=== PATIENT | female | born 2000 | race Caucasian/White ===

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

== ENCOUNTER 2020-07-18 02:52 | Emergency (ER) | payer BC ==
[2020-07-18 03:02] VITALS: TEMP 98.9
[2020-07-18] MEDS ORDERED: IPRATROPIUM-ALBUTEROL 3 ML NEB INHALATION STA (03:16)
--- NOTE | 2020-07-18 03:17 | ED ---
SOB HPI - General Chief Complaint: Shortness of Breath Stated Complaint: ADELA Time Seen by Provider: 07/18/20 02:54 Source: patient, RN notes reviewed, old records reviewed Limitations: no limitations - History of Present Illness Initial Comments: This is a 19-year-old female DF for evaluation patient presents today for evaluation of shortness of breath. No medical history takes no medications denies . Patient is to on her motivate pain. She is anxious on arrival to ER. No recent travel history or sick contacts no prior medical history takes no medications MD Complaint: shortness of breath -: days(s) (3) Severity: mild Severity scale (1-10): 3 Quality: other (No pain) Consistency: intermittent Improves With: nothing Worsens With: exertion Context: recent URI Associated Symptoms: denies other symptoms Treatments Prior to Arrival: none - Related Data Previous Rx's Medication Instructions Recorded Ondansetron Odt [Zofran Odt] 4 mg PO Q8HR PRN #12 tab 11/28/18 Cephalexin [Keflex] 500 mg PO Q12HR 10 Days cap 02/17/19 Cephalexin [Keflex] 500 mg PO Q6HR 3 Days #10 cap 07/10/19 Albuterol Sulfate [Proair Hfa] 1 - 2 puff INHALATION Q4H PRN #1 07/18/20 inhaler Azithromycin [Zithromax Z-pack] 0 mg PO DIRECTED #1 pack 07/18/20 Allergies Allergy/AdvReac Type Severity Reaction Status Date / Time No Known Allergies Allergy Verified 07/18/20 03:02 Review of Systems ROS Statement: Those systems with pertinent positive or pertinent negative responses have been documented in the HPI. ROS Other: All systems not noted in ROS Statement are negative. Past Medical History Past Medical History: No Reported History History of Any Multi-Drug Resistant Organisms: None Reported Additional Past Surgical History / Comment(s): oral surgery Past Psychological History: No Psychological Hx Reported, ADD/ADHD Smoking Status: Current every day smoker Past Alcohol Use History: Occasional Past Drug Use History: None Reported General Exam Limitations: no limitations General appearance: alert, in no apparent distress, anxious Head exam: Present: atraumatic, normocephalic, normal inspection Eye exam: Present: normal appearance, PERRL, EOMI. Absent: scleral icterus, conjunctival injection, periorbital swelling ENT exam: Present: normal exam, mucous membranes moist Neck exam: Present: normal inspection. Absent: tenderness, meningismus, lymphadenopathy Respiratory exam: Present: normal lung sounds bilaterally. Absent: respiratory distress, wheezes, rales, rhonchi, stridor Cardiovascular Exam: Present: normal rhythm, tachycardia, normal heart sounds. Absent: systolic murmur, diastolic murmur, rubs, gallop, clicks GI/Abdominal exam: Present: soft, normal bowel sounds. Absent: distended, t enderness, guarding, rebound, rigid Extremities exam: Present: normal inspection, full ROM, normal capillary refill. Absent: tenderness, pedal edema, joint swelling, calf tenderness Back exam: Present: normal inspection Neurological exam: Present: alert, oriented X3, CN II-XII intact Psychiatric exam: Present: normal affect, normal mood Skin exam: Present: warm, dry, intact, normal color. Absent: rash Course Vital Signs 07/18/20 07/18/20 07/18/20 03:00 03:22 03:45 Temperature 98.9 F Pulse Rate 107 H 81 Respiratory 16 18 Rate Blood Pressure 137/88 O2 Sat by Pulse 98 Oximetry 07/18/20 03:54 Temperature Pulse Rate 79 Respiratory Rate Blood Pressure O2 Sat by Pulse Oximetry - Reevaluation(s) Reevaluation #1: 07/18/20 03:59 Medical records reviewed Reevaluation #2: 07/18/20 03:59 Patient anxious on arrival heart corrected without treatment heart rate Reevaluation #3: 07/18/20 03:59 Patient feels significantly improved Medical Decision Making - Medical Decision Making 19 female DF for evaluation of some shortness of breath 3 days. Chest x-rays negative improved with breathing. Patient can be discharged home - Lab Data Lab Results 07/18/20 07/18/20 Range/Units 03:19 03:19 Urine Color Colorless Urine Appearance Clear (Clear) Urine pH 6.0 (5.0-8.0) Ur Specific [place] 1.002 (1.001-1.035) Urine Protein Negative (Negative) Urine Glucose (UA) Negative (Negative) Urine Ketones Negative (Negative) Urine Blood Negative (Negative) Urine Nitrite Negative (Negative) Urine Bilirubin Negative (Negative) Urine Urobilinogen <2.0 (<2.0) mg/dL Ur Leukocyte Esterase Negative (Negative) Urine HCG, Qual Not Detected (Not Detectd) - EKG Data -: EKG Interpreted by Me (EKG is sinus rhythm 79, AR 132 QRS 86 QTc 449) - Radiology Data Radiology results: report reviewed (Chest x-rays negative for acute disease), image reviewed Disposition Clinical Impression: Acute bronchitis Disposition: HOME SELF-CARE Condition: Good Instructions (If sedation given, give patient instructions): Acute Bronchitis (ED) Is patient prescribed a controlled substance at d/c from ED?: No Referrals: Lester De La Garza MD [Primary Care Provider] - 1-2 days
[2020-07-18 03:29] LABS: Appearance,Urine Clear (Clear); Bilirubin,Urine Negative (Negative); Blood,Urine Negative (Negative); Color,Urine Colorless; Glucose,Urine (UA) Negative (Negative); Ketones,Urine Negative (Negative); Leukocyte Esterase,Urine Negative (Negative); Nitrite,Urine Negative (Negative); Protein,Urine Negative (Negative); Specific Gravity,Urine 1.002 (1.001-1.035); Urobilinogen,Urine <2.0 mg/dL (<2.0)
--- NOTE | 2020-07-18 03:56 | XR ---
EXAMINATION TYPE: XR chest 2V DATE OF EXAM: 07/18/2020 COMPARISON: None HISTORY: Short of breath TECHNIQUE: FINDINGS: Heart and mediastinum are normal. Lungs are clear. Diaphragm is normal. Bony thorax appears normal. IMPRESSION: Normal chest.
[2020-07-18] MEDS ORDERED: AZITHROMYCIN 500 MG TAB PO STA (03:58)
[2020-07-18] MEDS ORDERED: dexAMETHasone 4 MG TAB PO STA (03:59)
[2020-07-18] MEDS ORDERED: SODIUM CHLORIDE 0.9% 1,000 ML IV STA (04:12)
[2020-07-18] MEDS ORDERED: KETOROLAC 15 MG/ML 1 ML VIAL IVP STA (04:16)
[2020-07-18] MEDS ORDERED: PANTOPRAZOLE 40 MG/10 ML VIAL IVP STA (04:16)
[2020-07-18 04:38] LABS: Basophils # (A) 0.1 k/uL (0-0.2); Basophils % (A) 1 %; Eosinophils # (A) 0.2 k/uL (0-0.7); Eosinophils % (A) 2 %; HCT 43.5 % (34.0-46.0); HGB 14.5 gm/dL (11.4-16.0); Lymphocytes # (A) 2.6 k/uL (1.0-4.8); Lymphocytes % (A) 31 %; MCH 29.1 pg (25.0-35.0); MCHC 33.3 g/dL (31.0-37.0); MCV 87.3 fL (80.0-100.0); Mean Platelet Volume 6.5; Monocytes # (A) 0.6 k/uL (0-1.0); Monocytes % (A) 7 %; Neutrophils # (A) 4.8 k/uL (1.3-7.7); Neutrophils % (A) 57 %; Platelet Count 279 k/uL (150-450); RBC 4.98 m/uL (3.80-5.40); RDW 13.1 % (11.5-15.5); WBC 8.4 k/uL (4.0-11.0)
[2020-07-18 04:48] LABS: ALT 11 U/L (4-34); AST 17 U/L (14-36); African American GFR (CKD) >90 (>60 ml/min/1.73 sqM); Albumin 5.2 g/dL (3.5-5.0); Alkaline Phosphatase 58 U/L (38-126); Anion Gap 8 mmol/L; Blood Urea Nitrogen 10 mg/dL (7-17); Calcium 9.7 mg/dL (8.4-10.2); Carbon Dioxide 22 mmol/L (22-30); Chloride 105 mmol/L (98-107); Creatine Kinase 78 U/L (30-135); Glucose 103 mg/dL (74-99); Magnesium 2.1 mg/dL (1.6-2.3); Non-African American GFR(CKD) >90 (>60 ml/min/1.73 sqM); Potassium 3.4 mmol/L (3.5-5.1); Sodium 135 mmol/L (137-145); Total Bilirubin 0.7 mg/dL (0.2-1.3)
[2020-07-18 04:50] LABS: D-Dimer <0.17 mg/L FEU (<0.60); INR 1.1 (<1.2); Partial Thromboplastin Time 25.6 sec (22.0-30.0); Prothrombin Time 10.8 sec (9.0-12.0)
[2020-07-18 04:53] LABS: Amphetamine Screen,Urine Not Detected (NotDetected); Barbiturate Screen,Urine Not Detected (NotDetected); Benzodiazepines Screen,Urine Not Detected (NotDetected); Cocaine Screen,Urine Not Detected (NotDetected); Methadone Screen, Urine Not Detected (NotDetected); Opiate Screen,Urine Not Detected (NotDetected); Oxycodone Screen, Urine Not Detected (NotDetected); Phencyclidine Screen,Urine Not Detected (NotDetected); Tricyclic Antidepressant,Urine Not Detected (NotDetected); Urn Cannabinoid Scrn Detected (NotDetected)
[2020-07-18 05:21] VITALS: BP 112/70; PULSE 75; RESP 16
--- NOTE | 2020-07-18 05:22 | CT ---
EXAMINATION TYPE: CT angio chest DATE OF EXAM: 07/18/2020 COMPARISON: None HISTORY: pe CT DLP: 312.4 mGycm Automated exposure control for dose reduction was used. CONTRAST: Performed with IV Contrast, patient injected with 70 mL of Isovue 370. There are 3-D post processed images. The lungs are clear of infiltrate. There is no evidence of pleural effusion or pneumothorax. Heart si ze is normal. There is no pericardial effusion. There is no mediastinal adenopathy. There are no hilar masses. Thoracic aorta appears normal. There i s no aneurysm or dissection. There is normal contrast opacification of the pulmonary arteries. There are no filling defects. The bony thorax is intact. IMPRESSION: Normal exam. No evidence of pulmonary embolism.
--- NOTE | 2020-07-18 05:34 | ED ---
Medical Decision Making - Medical Decision Making 19-year-old female DF for evaluation prior to discharge did go evaluate patient in the candidate complaining more of chest pain anterior chest pain further evaluation was done currently reevaluation of EKG lab work and computed tomography scan of chest. All tests have come back Back normal. Patient informed of new findings, she is in no distress and okay for discharge , - Lab Data Result diagrams: 07/18/20 04:21 07/18/20 04:21 Lab Results 07/18/20 07/18/20 07/18/20 Range/Units 03:19 03:19 03:19 WBC (4.0-11.0) k/uL RBC (3.80-5.40) m/uL Hgb (11.4-16.0) gm/dL Hct (34.0-46.0) % MCV (80.0-100.0) fL MCH (25.0-35.0) pg MCHC (31.0-37.0) g/dL RDW (11.5-15.5) % Plt Count (150-450) k/uL Neutrophils % % Lymphocytes % % Monocytes % % Eosinophils % % Basophils % % Neutrophils # (1.3-7.7) k/uL Lymphocytes # (1.0-4.8) k/uL Monocytes # (0-1.0) k/uL Eosinophils # (0-0.7) k/uL Basophils # (0-0.2) k/uL PT (9.0-12.0) sec INR (<1.2) APTT (22.0-30.0) sec D-Dimer (<0.60) mg/L FEU Sodium (137-145) mmol/L Potassium (3.5-5.1) mmol/L Chloride (98-107) mmol/L Carbon Dioxide (22-30) mmol/L Anion Gap mmol/L BUN (7-17) mg/dL Creatinine (0.52-1.04) mg/dL Est GFR (CKD-EPI)AfAm (>60 ml/min/1.73 sqM) Est GFR (CKD-EPI)NonAf (>60 ml/min/1.73 sqM) Glucose (74-99) mg/dL Calcium (8.4-10.2) mg/dL Magnesium (1.6-2.3) mg/dL Total Bilirubin (0.2-1.3) mg/dL AST (14-36) U/L ALT (4-34) U/L Alkaline Phosphatase (38-126) U/L Creatine Kinase (30-135) U/L Troponin I (0.000-0.034) ng/mL NT-Pro-B Natriuret Pep pg/mL Total Protein (6.3-8.2) g/dL Albumin (3.5-5.0) g/dL Lipase (23-300) U/L TSH (0.465-4.680) mIU/L Urine Color Colorless Urine Appearance Clear (Clear) Urine pH 6.0 (5.0-8.0) Ur Specific [place] 1.002 (1.001-1.035) Urine Protein Negative (Negative) Urine Glucose (UA) Negative (Negative) Urine Ketones Negative (Negative) Urine Blood Negative (Negative) Urine Nitrite Negative (Negative) Urine Bilirubin Negative (Negative) Urine Urobilinogen <2.0 (<2.0) mg/dL Ur Leukocyte Esterase Negative (Negative) Urine HCG, Qual Not Detected (Not Detectd) Urine Opiates Screen Not Detected (NotDetected) Ur Oxycodone Screen Not Detected (NotDetected) Urine Methadone Screen Not Detected (NotDetected) Ur Propoxyphene Screen Not Detected (NotDetected) Ur Barbiturates Screen Not Detected (NotDetected) U Tricyclic Antidepress Not Detected (NotDetected) Ur Phencyclidine Scrn Not Detected (NotDetected) Ur Amphetamines Screen Not Detected (NotDetected) U Methamphetamines Scrn Not Detected (NotDetected) U Benzodiazepines Scrn Not Detected (NotDetected) Urine Cocaine Screen Not Detected (NotDetected) U Marijuana (THC) Screen Detected H (NotDetected) 07/18/20 07/18/20 07/18/20 Range/Units 04:21 04:21 04:21 WBC 8.4 (4.0-11.0) k/uL RBC 4.98 (3.80-5.40) m/uL Hgb 14.5 (11.4-16.0) gm/dL Hct 43.5 (34.0-46.0) % MCV 87.3 (80.0-100.0) fL MCH 29.1 (25.0-35.0) pg MCHC 33.3 (31.0-37.0) g/dL RDW 13.1 (11.5-15.5) % Plt Count 279 (150-450) k/uL Neutrophils % 57 % Lymphocytes % 31 % Monocytes % 7 % Eosinophils % 2 % Basophils % 1 % Neutrophils # 4.8 (1.3-7.7) k/uL Lymphocytes # 2.6 (1.0-4.8) k/uL Monocytes # 0.6 (0-1.0) k/uL Eosinophils # 0.2 (0-0.7) k/uL Basophils # 0.1 (0-0.2) k/uL PT 10.8 (9.0-12.0) sec INR 1.1 (<1.2) APTT 25.6 (22.0-30.0) sec D-Dimer <0.17 (<0.60) mg/L FEU Sodium 135 L (137-145) mmol/L Potassium 3.4 L (3.5-5.1) mmol/L Chloride 105 (98-107) mmol/L Carbon Dioxide 22 (22-30) mmol/L Anion Gap 8 mmol/L BUN 10 (7-17) mg/dL Creatinine 0.62 (0.52-1.04) mg/dL Est GFR (CKD-EPI)AfAm >90 (>60 ml/min/1.73 sqM) Est GFR (CKD-EPI)NonAf >90 (>60 ml/min/1.73 sqM) Glucose 103 H (74-99) mg/dL Calcium 9.7 (8.4-10.2) mg/dL Magnesium 2.1 (1.6-2.3) mg/dL Total Bilirubin 0.7 (0.2-1.3) mg/dL AST 17 (14-36) U/L ALT 11 (4-34) U/L Alkaline Phosphatase 58 (38-126) U/L Creatine Kinase 78 (30-135) U/L Troponin I (0.000-0.034) ng/mL NT-Pro-B Natriuret Pep pg/mL Total Protein 8.0 (6.3-8.2) g/dL Albumin 5.2 H (3.5-5.0) g/dL Lipase 72 (23-300) U/L TSH 2.690 (0.465-4.680) mIU/L Urine Color Urine Appearance (Clear) Urine pH (5.0-8.0) Ur Specific [place] (1.001-1.035) Urine Protein (Negative) Urine Glucose (UA) (Negative) Urine Ketones (Negative) Urine Blood (Negative) Urine Nitrite (Negative) Urine Bilirubin (Negative) Urine Urobilinogen (<2.0) mg/dL Ur Leukocyte Esterase (Negative) Urine HCG, Qual (Not Detectd) Urine Opiates Screen (NotDetected) Ur Oxycodone Screen (NotDetected) Urine Methadone Screen (NotDetected) Ur Propoxyphene Screen (NotDetected) Ur Barbiturates Screen (NotDetected) U Tricyclic Antidepress (NotDetected) Ur Phencyclidine Scrn (NotDetected) Ur Amphetamines Screen (NotDetected) U Methamphetamines Scrn (NotDetected) U Benzodiazepines Scrn (NotDetected) Urine Cocaine Screen (NotDetected) U Marijuana (THC) Screen (NotDetected) 07/18/20 07/18/20 Range/Units 04:21 04:21 WBC (4.0-11.0) k/uL RBC (3.80-5.40) m/uL Hgb (11.4-16.0) gm/dL Hct (34.0-46.0) % MCV (80.0-100.0) fL MCH (25.0-35.0) pg MCHC (31.0-37.0) g/dL RDW (11.5-15.5) % Plt Count (150-450) k/uL Neutrophils % % Lymphocytes % % Monocytes % % Eosinophils % % Basophils % % Neutrophils # (1.3-7.7) k/uL Lymphocytes # (1.0-4.8) k/uL Monocytes # (0-1.0) k/uL Eosinophils # (0-0.7) k/uL Basophils # (0-0.2) k/uL PT (9.0-12.0) sec INR (<1.2) APTT (22.0-30.0) sec D-Dimer (<0.60) mg/L FEU Sodium (137-145) mmol/L Potassium (3.5-5.1) mmol/L Chloride (98-107) mmol/L Carbon Dioxide (22-30) mmol/L Anion Gap mmol/L BUN (7-17) mg/dL Creatinine (0.52-1.04) mg/dL Est GFR (CKD-EPI)AfAm (>60 ml/min/1.73 sqM) Est GFR (CKD-EPI)NonAf (>60 ml/min/1.73 sqM) Glucose (74-99) mg/dL Calcium (8.4-10.2) mg/dL Magnesium (1.6-2.3) mg/dL Total Bilirubin (0.2-1.3) mg/dL AST (14-36) U/L ALT (4-34) U/L Alkaline Phosphatase (38-126) U/L Creatine Kinase (30-135) U/L Troponin I <0.012 (0.000-0.034) ng/mL NT-Pro-B Natriuret Pep 30 pg/mL Total Protein (6.3-8.2) g/dL Albumin (3.5-5.0) g/dL Lipase (23-300) U/L TSH (0.465-4.680) mIU/L Urine Color Urine Appearance (Clear) Urine pH (5.0-8.0) Ur Specific [place] (1.001-1.035) Urine Protein (Negative) Urine Glucose (UA) (Negative) Urine Ketones (Negative) Urine Blood (Negative) Urine Nitrite (Negative) Urine Bilirubin (Negative) Urine Urobilinogen (<2.0) mg/dL Ur Leukocyte Esterase (Negative) Urine HCG, Qual (Not Detectd) Urine Opiates Screen (NotDetected) Ur Oxycodone Screen (NotDetected) Urine Methadone Screen (NotDetected) Ur Propoxyphene Screen (NotDetected) Ur Barbiturates Screen (NotDetected) U Tricyclic Antidepress (NotDetected) Ur Phencyclidine Scrn (NotDetected) Ur Amphetamines Screen (NotDetected) U Methamphetamines Scrn (NotDetected) U Benzodiazepines Scrn (NotDetected) Urine Cocaine Screen (NotDetected) U Marijuana (THC) Screen (NotDetected) - Radiology Data Radiology results: report reviewed (CTA chest is negative for acute disease), image reviewed Disposition Clinical Impression: Chest pain Disposition: HOME SELF-CARE Condition: Good Instructions (If sedation given, give patient instructions): Chest Pain (ED) Prescriptions: Albuterol Sulfate [Proair Hfa] 1 - 2 puff INHALATION Q4H PRN #1 inhaler PRN Reason: Shortness Of Breath Azithromycin [Zithromax Z-pack] 0 mg PO DIRECTED #1 pack Is patient prescribed a controlled substance at d/c from ED?: No Referrals: Lester De La Garza MD [Primary Care Provider] - 1-2 days
== END 2020-07-18 05:53 | disposition home or self-care (01) ==
LOC: EC 02:52
DX: J20.9 Acute bronchitis, unspecified (principal); R00.0 Tachycardia, unspecified; F17.200 Nicotine dependence, unspecified, uncomplicated
CPT/HCPCS: 36415; 94640; 93005; 85379; 83880; 80053; 84443; 82550; 83690; 83735; 84484; 85025; 85610; 85730; 81003; 81025; 80306; 71046; 71275; 99285; 96374; 96375; 96361; J1885; C9113; Q9967

== ENCOUNTER 2022-04-03 08:57 | Observation (INO) | payer BC, OTHER ==
[2022-04-03] MEDS ORDERED: SODIUM CHLORIDE 0.9% 1,000 ML IV STA (09:33)
[2022-04-03] MEDS ORDERED: HYDROmorphone 0.5 MG/0.5 ML SYRINGE IVP STA (09:33)
--- NOTE | 2022-04-03 09:37 | ED ---
General Adult HPI - General Chief complaint: Abdominal Pain Stated complaint: Stomach Pains into back Time Seen by Provider: 04/03/22 09:05 Source: patient, RN notes reviewed, old records reviewed Mode of arrival: ambulatory Limitations: no limitations - History of Present Illness Initial comments: This is a 21-year-old female presents emergency Department with abdominal pain is started yesterday morning. Patient states pain continues. Patient states the pain is in the epigastric region radiates to her back. Patient states it seems to move around occasionally but if you press in the epigastric region she states the pain spreads across to the right upper quadrant in the back. Patient denies any nausea vomiting or diarrhea. Patient states she's been able to eat normally. Patient saw no association with the pain and eating. Patient denies chest pain difficulty breathing shortness of breath per patient denies any fever chills or cough. Patient denies any dysuria hematuria urinary frequency. Patient states she does not believe she is . - Related Data Previous Rx's Medication Instructions Recorded Ondansetron Odt [Zofran Odt] 4 mg PO Q8HR PRN #12 tab 11/28/18 Cephalexin [Keflex] 500 mg PO Q12HR 10 Days cap 02/17/19 Cephalexin [Keflex] 500 mg PO Q6HR 3 Days #10 cap 07/10/19 Albuterol Sulfate [Proair Hfa] 1 - 2 puff INHALATION Q4H PRN #1 07/18/20 inhaler Azithromycin [Zithromax Z-pack (6 0 mg PO DIRECTED #1 pack 07/18/20 tabs)] Allergies Allergy/AdvReac Type Severity Reaction Status Date / Time No Known Allergies Allergy Verified 04/03/22 09:07 Review of Systems ROS Statement: Those systems with pertinent positive or pertinent negative responses have been documented in the HPI. ROS Other: All systems not noted in ROS Statement are negative. Past Medical History Past Medical History: No Reported History History of Any Multi-Drug Resistant Organisms: None Reported Past Surgical History: No Surgical Hx Reported Additional Past Surgical History / Comment(s): oral surgery Past Psychological History: No Psychological Hx Reported, ADD/ADHD Smoking Status: Current every day smoker Past Alcohol Use History: Occasional Past Drug Use History: None Reported General Exam - General Exam Comments Initial Comments: GENERAL: Patient is well-developed and well-nourished. Patient is nontoxic and well- hydrated and is in mild distress. ENT: Neck is soft and supple. No significant lymphadenopathy is noted. Oropharynx is clear. Moist mucous membranes. Neck has full range of motion without eliciting any pain. EYES: The sclera were anicteric and conjunctiva were pink and moist. Extraocular movements were intact and pupils were equal round and reactive to light. Eyelids were unremarkable. PULMONARY: Unlabored respirations. Good breath sounds bilaterally. No audible rales rhonchi or wheezing was noted. CARDIOVASCULAR: There is a regular rate and rhythm without any murmurs gallops or rubs. ABDOMEN: Patient has pain in the epigastric region on palpation SKIN: Skin is clear with no lesions or rashes and otherwise unremarkable. NEUROLOGIC: Patient is alert and oriented x3. Cranial nerves II through XII are grossly intact. Motor and sensory are also intact. Normal speech, volume and content. Symmetrical smile. MUSCULOSKELETAL: Normal extremities with adequate strength and full range of motion. LYMPHATICS: No significant lymphadenopathy is noted PSYCHIATRIC: Normal psychiatric evaluation. Limitations: no limitations Course Vital Signs 04/03/22 04/03/22 04/03/22 09:05 10:07 11:00 Temperature 97.7 F Pulse Rate 105 H 103 H 81 Respiratory 18 16 16 Rate Blood Pressure 111/71 108/85 127/74 O2 Sat by Pulse 98 97 97 Oximetry Medical Decision Making - Medical Decision Making Patient's amylase lipase were both elevated. I did an ultrasound patient's gallbladder showed no acute abnormalities. I spoke with sounds physician's agreed to admit the patient admitted the patient I consult to GI. - Lab Data Result diagrams: 04/03/22 09:50 04/03/22 09:50 Lab Results 04/03/22 04/03/22 04/03/22 Range/Units 09:50 09:50 09:50 WBC 11.6 H (3.8-10.6) k/uL RBC 4.63 (3.80-5.40) m/uL Hgb 13.4 (11.4-16.0) gm/dL Hct 41.5 (34.0-46.0) % MCV 89.7 (80.0-100.0) fL MCH 29.0 (25.0-35.0) pg MCHC 32.3 (31.0-37.0) g/dL RDW 13.2 (11.5-15.5) % Plt Count 213 (150-450) k/uL MPV 6.5 Neutrophils % 81 % Lymphocytes % 10 % Monocytes % 7 % Eosinophils % 1 % Basophils % 0 % Neutrophils # 9.3 H (1.3-7.7) k/uL Lymphocytes # 1.2 (1.0-4.8) k/uL Monocytes # 0.8 (0-1.0) k/uL Eosinophils # 0.2 (0-0.7) k/uL Basophils # 0.1 (0-0.2) k/uL Sodium 136 L (137-145) mmol/L Potassium 3.7 (3.5-5.1) mmol/L Chloride 102 (98-107) mmol/L Carbon Dioxide 25 (22-30) mmol/L Anion Gap 9 mmol/L BUN 8 (7-17) mg/dL Creatinine 0.55 (0.52-1.04) mg/dL Est GFR (CKD-EPI)AfAm >90 (>60 ml/min/1.73 sqM) Est GFR (CKD-EPI)NonAf >90 (>60 ml/min/1.73 sqM) Glucose 98 (74-99) mg/dL Plasma Lactic Acid Chris 0.6 L (0.7-2.0) mmol/L Calcium 8.8 (8.4-10.2) mg/dL Total Bilirubin 1.2 (0.2-1.3) mg/dL AST 21 (14-36) U/L ALT 20 (4-34) U/L Alkaline Phosphatase 62 (38-126) U/L Total Protein 6.9 (6.3-8.2) g/dL Albumin 4.3 (3.5-5.0) g/dL Amylase 1354 H* (30-110) U/L Lipase 86751 H (23-300) U/L Urine Color Urine Appearance (Clear) Urine pH (5.0-8.0) Ur Specific [place] (1.001-1.035) Urine Protein (Negative) Urine Glucose (UA) (Negative) Urine Ketones (Negative) Urine Blood (Negative) Urine Nitrite (Negative) Urine Bilirubin (Negative) Urine Urobilinogen (<2.0) mg/dL Ur Leukocyte Esterase (Negative) Urine RBC (0-5) /hpf Urine WBC (0-5) /hpf Ur Squamous Epith Cells (0-4) /hpf Urine Bacteria (None) /hpf Hyaline Casts (0-2) /lpf Urine Mucus (None) /hpf Urine HCG, Qual (Not Detectd) 04/03/22 04/03/22 Range/Units 11:00 11:00 WBC (3.8-10.6) k/uL RBC (3.80-5.40) m/uL Hgb (11.4-16.0) gm/dL Hct (34.0-46.0) % MCV (80.0-100.0) fL MCH (25.0-35.0) pg MCHC (31.0-37.0) g/dL RDW (11.5-15.5) % Plt Count (150-450) k/uL MPV Neutrophils % % Lymphocytes % % Monocytes % % Eosinophils % % Basophils % % Neutrophils # (1.3-7.7) k/uL Lymphocytes # (1.0-4.8) k/uL Monocytes # (0-1.0) k/uL Eosinophils # (0-0.7) k/uL Basophils # (0-0.2) k/uL Sodium (137-145) mmol/L Potassium (3.5-5.1) mmol/L Chloride (98-107) mmol/L Carbon Dioxide (22-30) mmol/L Anion Gap mmol/L BUN (7-17) mg/dL Creatinine (0.52-1.04) mg/dL Est GFR (CKD-EPI)AfAm (>60 ml/min/1.73 sqM) Est GFR (CKD-EPI)NonAf (>60 ml/min/1.73 sqM) Glucose (74-99) mg/dL Plasma Lactic Acid Chris (0.7-2.0) mmol/L Calcium (8.4-10.2) mg/dL Total Bilirubin (0.2-1.3) mg/dL AST (14-36) U/L ALT (4-34) U/L Alkaline Phosphatase (38-126) U/L Total Protein (6.3-8.2) g/dL Albumin (3.5-5.0) g/dL Amylase (30-110) U/L Lipase (23-300) U/L Urine Color Light Yellow Urine Appearance Cloudy H (Clear) Urine pH 6.0 (5.0-8.0) Ur Specific [place] 1.007 (1.001-1.035) Urine Protein Negative (Negative) Urine Glucose (UA) Negative (Negative) Urine Ketones 2+ H (Negative) Urine Blood Small H (Negative) Urine Nitrite Positive H (Negative) Urine Bilirubin Negative (Negative) Urine Urobilinogen <2.0 (<2.0) mg/dL Ur Leukocyte Esterase Trace H (Negative) Urine RBC 1 (0-5) /hpf Urine WBC 5 (0-5) /hpf Ur Squamous Epith Cells 7 H (0-4) /hpf Urine Bacteria Many H (None) /hpf Hyaline Casts 1 (0-2) /lpf Urine Mucus Rare H (None) /hpf Urine HCG, Qual Not Detected (Not Detectd) Disposition Clinical Impression: Pancreatitis Disposition: ADMITTED IP TO THIS HOSP Referrals: Lestre De La Garza MD [Primary Care Provider] - 1-2 days Time of Disposition: 12:37
[2022-04-03 10:06] LABS: Basophils # (A) 0.1 k/uL (0-0.2); Basophils % (A) 0 %; Eosinophils # (A) 0.2 k/uL (0-0.7); Eosinophils % (A) 1 %; HCT 41.5 % (34.0-46.0); HGB 13.4 gm/dL (11.4-16.0); Lymphocytes # (A) 1.2 k/uL (1.0-4.8); Lymphocytes % (A) 10 %; MCHC 32.3 g/dL (31.0-37.0); MCV 89.7 fL (80.0-100.0); Mean Platelet Volume 6.5; Monocytes # (A) 0.8 k/uL (0-1.0); Monocytes % (A) 7 %; Neutrophils # (A) 9.3 k/uL (1.3-7.7); Neutrophils % (A) 81 %; Platelet Count 213 k/uL (150-450); RBC 4.63 m/uL (3.80-5.40); RDW 13.2 % (11.5-15.5); WBC 11.6 k/uL (3.8-10.6)
[2022-04-03 10:15] LABS: ALT 20 U/L (4-34); AST 21 U/L (14-36); African American GFR (CKD) >90 (>60 ml/min/1.73 sqM); Albumin 4.3 g/dL (3.5-5.0); Alkaline Phosphatase 62 U/L (38-126); Anion Gap 9 mmol/L; Blood Urea Nitrogen 8 mg/dL (7-17); Calcium 8.8 mg/dL (8.4-10.2); Carbon Dioxide 25 mmol/L (22-30); Chloride 102 mmol/L (98-107); Glucose 98 mg/dL (74-99); Non-African American GFR(CKD) >90 (>60 ml/min/1.73 sqM); Potassium 3.7 mmol/L (3.5-5.1); Sodium 136 mmol/L (137-145); Total Bilirubin 1.2 mg/dL (0.2-1.3); Total Protein 6.9 g/dL (6.3-8.2)
[2022-04-03 10:42] LABS: Amylase 1354 U/L (30-110)
[2022-04-03 10:51] LABS: Lipase 12090 U/L (23-300)
[2022-04-03 11:48] LABS: Appearance,Urine Cloudy (Clear); Bacteria,Urine Many /hpf; Bilirubin,Urine Negative (Negative); Blood,Urine Small (Negative); Color,Urine Light Yellow; Glucose,Urine (UA) Negative (Negative); Hyaline Casts,Urine 1 /lpf (0-2); Ketones,Urine 2+ (Negative); Leukocyte Esterase,Urine Trace (Negative); Mucus,Urine Rare /hpf; Nitrite,Urine Positive (Negative); Protein,Urine Negative (Negative); RBC,Urine 1 /hpf (0-5); Specific Gravity,Urine 1.007 (1.001-1.035); Squamous Epithelial Cell,Urine 7 /hpf (0-4); Urobilinogen,Urine <2.0 mg/dL (<2.0); WBC,Urine 5 /hpf (0-5)
--- NOTE | 2022-04-03 11:50 | US ---
EXAMINATION TYPE: US gallbladder DATE OF EXAM: 04/03/2022 COMPARISON: NONE CLINICAL HISTORY: 21-year-old female Epigastric abdominal pain. TECHNIQUE: Multiple sonographic images of the right upper quadrant are obtained. FINDINGS: EXAM MEASUREMENTS: Liver Length: 15.2 cm Gallbladder Wall: 0.3 cm CBD: 0.4 cm Right Kidney: 11.6 x 4.0 x 4.6 cm Pancreas: Portions visualized wnl, partially obscured by bowel gas Liver: wnl Gallbladder: wnl Evidence for sonographic Fitzgerald's sign: No CBD: wnl Right Kidney: wnl IMPRESSION: Unremarkable sonographic examination right upper quadrant.
[2022-04-03] MEDS ORDERED: SODIUM CHLORIDE 0.9% 1,000 ML IV ONE (12:37)
[2022-04-03] MEDS ORDERED: NALOXONE 0.4 MG/ML 1 ML VIAL IV PRN (14:44)
[2022-04-03] MEDS ORDERED: DOCUSATE 100 MG CAP PO PRN (14:44)
[2022-04-03] MEDS ORDERED: bisacodyL 5 MG TABLET.DR PO PRN (14:44)
--- NOTE | 2022-04-03 14:46 | P.HPIM ---
History of Present Illness H&P Date: 04/03/22 Chief Complaint: Abdominal pain 21-year-old woman with no medical history presented with abdominal pain. Patient says her pain started yesterday, and continuously got worse. She says the pain is epigastric, right upper quadrant area, sharp/stabbing in nature. She has not particularly noticed any association with food intake. She says that she and her boyfriend eat a lot of red meats, fatty foods. She denies significant alcohol history. She denies associated nausea, vomiting, constipation, diarrhea. She denies fevers, chills, chest pain, palpitations, syncope, presyncope, cough, dyspnea, dysuria, dyschezia, numbness/weakness of extremities. In the emergency room, patient is afebrile, 111/71, heart rate 105, 98% on room air. CBC is markable for mild leukocytosis. Chemistries are unremarkable. LFTs are unremarkable. Amylase is elevated at 1354. Lipase is elevated at 12,090. UA significant for 2+ ketones, small blood, positive nitrite, trace leukocyte esterase, rare mucus, however, this UA is contaminated by a squamous epithelial cells. Patient had gallbladder ultrasound showed unremarkable sonographic imaging. All Systems reviewed and pertinent positives and negatives noted in HPI, all other symptoms are negative Gen: awake, alert HEENT: normocephalic, atraumatic, good hearing acuity, moist mucous membranes Resp: good air exchange, breathing comfortably with no accessory muscle use CVS: good distal perfusion x 4, GI: soft, tender palpation of the right upper quadrant, nondistended : no SPT, no CVAT, finnegan catheter not present MSK: no pitting edema, no clubbing Neuro: non-focal, moving all extremities Psych: cooperative, euthymic mood Labs and imaging as above Assessment/plan: Pancreatitis, acute -Admit to inpatient, telemetry -Nothing by mouth -IV fluids -Pain control, nausea control, bowel regimen -Advance to clear liquid diet by tomorrow if no emesis, improvement of pain Patient is full code DVT prophylaxis with enoxaparin Past Medical History Past Medical History: No Reported History History of Any Multi-Drug Resistant Organisms: None Reported Past Surgical History: No Surgical Hx Reported Additional Past Surgical History / Comment(s): oral surgery Past Psychological History: No Psychological Hx Reported, ADD/ADHD Smoking Status: Current every day smoker Past Alcohol Use History: Occasional Past Drug Use History: None Reported Medications and Allergies Home Medications Medication Instructions Recorded Confirmed Type No Known Home Medications 04/03/22 04/03/22 History Allergies Allergy/AdvReac Type Severity Reaction Status Date / Time No Known Allergies Allergy Verified 04/03/22 14:04 Physical Exam Osteopathic Statement: *. No significant issues noted on an osteopathic structural exam other than those noted in the History and Physical/Consult. Vitals: Vital Signs Temp Pulse Resp BP Pulse Ox 04/03/22 13:00 88 16 110/70 97 04/03/22 11:00 81 16 127/74 97 04/03/22 10:07 103 H 16 108/85 97 04/03/22 09:05 97.7 F 105 H 18 111/71 98 Intake and Output 04/02/22 04/03/22 04/03/22 22:59 06:59 14:59 Other: Weight 68.039 kg Results CBC & Chem 7: 04/03/22 09:50 04/03/22 09:50 Labs: Abnormal Lab Results - Last 24 Hours (Table) 04/03/22 04/03/22 04/03/22 Range/Units 09:50 09:50 09:50 WBC 11.6 H (3.8-10.6) k/uL Neutrophils # 9.3 H (1.3-7.7) k/uL Sodium 136 L (137-145) mmol/L Plasma Lactic Acid Chris 0.6 L (0.7-2.0) mmol/L Amylase 1354 H* (30-110) U/L Lipase 57871 H (23-300) U/L Urine Appearance (Clear) Urine Ketones (Negative) Urine Blood (Negative) Urine Nitrite (Negative) Ur Leukocyte Esterase (Negative) Ur Squamous Epith Cells (0-4) /hpf Urine Bacteria (None) /hpf Urine Mucus (None) /hpf 04/03/22 Range/Units 11:00 WBC (3.8-10.6) k/uL Neutrophils # (1.3-7.7) k/uL Sodium (137-145) mmol/L Plasma Lactic Acid Chris (0.7-2.0) mmol/L Amylase (30-110) U/L Lipase (23-300) U/L Urine Appearance Cloudy H (Clear) Urine Ketones 2+ H (Negative) Urine Blood Small H (Negative) Urine Nitrite Positive H (Negative) Ur Leukocyte Esterase Trace H (Negative) Ur Squamous Epith Cells 7 H (0-4) /hpf Urine Bacteria Many H (None) /hpf Urine Mucus Rare H (None) /hpf
[2022-04-03] MEDS: HYDROmorphone 1 MG/ML 1 ML SYRINGE IVP PRN (17:06)
[2022-04-03] MEDS ORDERED: LORazepam 2 MG/ML INJ IV PRN (19:58)
[2022-04-03] MEDS: MELATONIN 5 MG TABLET PO SCH (20:33)
[2022-04-04] MEDS: HYDROmorphone 1 MG/ML 1 ML SYRINGE IVP PRN ×2 (06:01→22:22)
[2022-04-04] MEDS: ENOXAPARIN 40 MG/0.4 ML SYRINGE SQ SCH (08:37)
[2022-04-04 09:38] LABS: Basophils # (A) 0.02 X 10*3/uL (0.00-0.10); Basophils % (A) 0.2 %; Eosinophils # (A) 0.25 X 10*3/uL (0.04-0.35); Eosinophils % (A) 2.9 %; HCT 36.6 % (37.2-46.3); HGB 11.6 g/dL (12.0-15.0); Immature Grans, Automated 0.3 %; Lymphocytes # (A) 1.14 X 10*3/uL (0.90-5.00); MCH 28.9 pg (27.0-32.0); MCHC 31.7 g/dL (32.0-37.0); MCV 91.3 fL (80.0-97.0); Mean Platelet Volume 9.2 fL (9.5-12.2); Monocytes # (A) 1.11 X 10*3/uL (0.20-1.00); Monocytes % (A) 12.7 %; NRBC Per 100 WBC 0 /100 WBCS (0.0-0.0); Neutrophils # (A) 6.19 X 10*3/uL (1.80-7.70); Neutrophils % (A) 70.9 %; Platelet Count 180 X 10*3/uL (140-440); RBC 4.01 X 10*6/uL (4.10-5.20); RDW 12.7 % (11.5-14.5); WBC 8.74 X 10*3/uL (4.50-10.00)
[2022-04-04 09:57] LABS: Anion Gap 13.5 mmol/L (10.00-18.00); BUN/Creat Ratio 14.67 Ratio (12.00-20.00); Blood Urea Nitrogen 8.8 mg/dL (9.0-27.0); Calcium 8.4 mg/dL (8.7-10.3); Carbon Dioxide 19.5 mmol/L (20.0-27.5); Magnesium 1.9 mg/dL (1.5-2.4); Non-African American GFR(CKD) 130.3 (60.0-200.0); Potassium 3.9 mmol/L (3.5-5.5)
--- NOTE | 2022-04-04 10:36 | P.CONS ---
History of Present Illness - Reason for Consult Consult date: 04/04/22 Pancreatitis Requesting physician: Jose Miguel Peck - Chief Complaint Abdominal pain - History of Present Illness This is a pleasant 21-year-old female who presented to the emergency department yesterday morning with complaints of abdominal pain had radiated to her back. She had no associated nausea or vomiting. She has been afebrile. Admitting labs showed an elevated amylase 1354 and lipase 12,090. WBC 11.6 hemoglobin 13.4 hematocrit 41 platelet count 213,000 total bilirubin 1.2 AST 21 ALT 20 alkaline phosphatase 62. Gastroenterology was consulted for acute pancreatitis. Patient denies any previous history of pancreatitis. She denies any recent new medication, denies gallbladder disease. No family history of pancreatitis. She does state that she recently turned 21 and she has been drinking more frequently over the last 2 weeks, not daily but binge drinking with friends. Patient states abdominal pain has improved. It was mostly in the epigastric region. Denies any nausea or vomiting. Last bowel movement 2 days ago. Ultrasound of gallbladder unremarkable examination right upper quadrant. Gallbladder within normal limits liver within normal limits. CBD 0.4 cm Review of Systems REVIEW OF SYSTEMS: CARDIOPULMONARY: No chest pain or shortness of breath. Gastrointestinal: Epigastric pain radiating to her back. No nausea or vomiting. No hematemesis, coffee-ground emesis. No rectal bleeding, or melena. GENITOURINARY: No dysuria or hematuria. MUSCULOSKELETAL: Reports normal range of motion. SKIN: No rashes. No jaundice. ENDOCRINE: No chills, fevers. No excessive weight gain or loss. No polydipsia or polyuria. PSYCHIATRIC: Unremarkable. NEUROLOGY: No change in mental status. Denies dizziness, headache. ENT: Vision unremarkable. CONSTITUTIONAL: No recent weight loss. No fever, chills, night sweats. Past Medical History Past Medical History: No Reported History History of Any Multi-Drug Resistant Organisms: None Reported Past Surgical History: No Surgical Hx Reported Additional Past Surgical History / Comment(s): oral surgery Past Psychological History: No Psychological Hx Reported, ADD/ADHD Smoking Status: Current some day smoker, Vaper Past Alcohol Use History: Occasional Past Drug Use History: None Reported Medications and Allergies Home Medications Medication Instructions Recorded Confirmed Type No Known Home Medications 04/03/22 04/03/22 History Allergies Allergy/AdvReac Type Severity Reaction Status Date / Time No Known Allergies Allergy Verified 04/03/22 14:04 Physical Exam Vitals: Vital Signs Temp Pulse Pulse Resp BP BP Pulse Ox 04/04/22 04:30 98.0 F 95 18 97/58 99 04/03/22 23:08 104 H 100/68 04/03/22 21:00 98.6 F 86 18 119/66 99 04/03/22 20:05 86 18 04/03/22 15:43 98.9 F 95 17 115/76 97 04/03/22 13:00 88 16 110/70 97 04/03/22 11:00 81 16 127/74 97 04/03/22 10:07 103 H 16 108/85 97 Intake and Output 04/03/22 04/04/22 04/04/22 22:59 06:59 14:59 Intake Total 800 1200 Balance 800 1200 Intake: Intake, IV Titration 800 1200 Amount Sodium Chloride 0.9% 1, 800 1200 000 ml @ 100 mls/hr IV . Q10H ONE Rx#:[id number] Other: Voiding Method Toilet Toilet # Voids 3 Weight 68.039 kg General appearance: The patient is alert, oriented, appears in no acute distress. HET: Head is normocephalic and atraumatic. Conjunctiva pink. Sclera anicteric. Neck: Supple without lymphadenopathy. Trachea midline. Heart: S1 S2. Regular rate and rhythm. Lungs: Clear to auscultation. Abdomen: Soft, epigastric tenderness, nondistended with bowel sounds. No guarding or rigidity. Skin: No rashes. No jaundice. Extremities: Normal skin color and turgor. No pedal edema. Neurological: No focal deficits. Alert and oriented x3. Results CBC & Chem 7: 04/04/22 05:48 04/04/22 05:48 Labs: Abnormal Lab Results - Last 24 Hours (Table) 04/03/22 04/03/22 04/03/22 Range/Units 09:50 09:50 09:50 WBC 11.6 H (3.8-10.6) k/uL RBC (4.10-5.20) X 10*6/uL Hgb (12.0-15.0) g/dL Hct (37.2-46.3) % MCHC (32.0-37.0) g/dL MPV (9.5-12.2) fL Neutrophils # 9.3 H (1.3-7.7) k/uL Monocytes # (0.20-1.00) X 10*3/uL Sodium 136 L (137-145) mmol/L Plasma Lactic Acid Chris 0.6 L (0.7-2.0) mmol/L Amylase 1354 H* (30-110) U/L Lipase 45157 H (23-300) U/L Urine Appearance (Clear) Urine Ketones (Negative) Urine Blood (Negative) Urine Nitrite (Negative) Ur Leukocyte Esterase (Negative) Ur Squamous Epith Cells (0-4) /hpf Urine Bacteria (None) /hpf Urine Mucus (None) /hpf 04/03/22 04/04/22 Range/Units 11:00 05:48 WBC (3.8-10.6) k/uL RBC 4.01 L (4.10-5.20) X 10*6/uL Hgb 11.6 L (12.0-15.0) g/dL Hct 36.6 L (37.2-46.3) % MCHC 31.7 L (32.0-37.0) g/dL MPV 9.2 L (9.5-12.2) fL Neutrophils # (1.3-7.7) k/uL Monocytes # 1.11 H (0.20-1.00) X 10*3/uL Sodium (137-145) mmol/L Plasma Lactic Acid Chris (0.7-2.0) mmol/L Amylase (30-110) U/L Lipase (23-300) U/L Urine Appearance Cloudy H (Clear) Urine Ketones 2+ H (Negative) Urine Blood Small H (Negative) Urine Nitrite Positive H (Negative) Ur Leukocyte Esterase Trace H (Negative) Ur Squamous Epith Cells 7 H (0-4) /hpf Urine Bacteria Many H (None) /hpf Urine Mucus Rare H (None) /hpf Comments: Ultrasound of gallbladder unremarkable examination right upper quadrant. Gallbladder within normal limits liver within normal limits. CBD 0.4 cm US - abdomen: report reviewed Assessment and Plan (1) Pancreatitis Narrative/Plan: 21-year-old female who presented for abdominal pain, mostly in the epigastric region wrapping around to her back. No prior history of pancreatitis, no family history of pancreatitis denies any recent new medications. Ultrasound of the gallbladder without and has been drinking more heavily, she states that she's been binge drinking. On admission amylase 1354 lipase 12,090. LFTs unremarkable. Unknown etiology at this time, may be alcohol related. We'll also run triglycerides, and autoimmune workup. Current Visit: Yes Status: Acute Code(s): K85.90 - ACUTE PANCREATITIS WITHOUT NECROSIS OR INFECTION, UNSP SNOMED Code(s): 80549533 Plan: 1. Continue symptomatic and supportive care 2. Continue with pain management 3. Continue with IV hydration 4. Patient may have clear liquid diet 5. Repeat amylase, lipase 6. Triglycerides, KIANNA, IgG4 ordered Thank you for this consultation, we will continue to follow. Dr. Eder Pineda I agree with the dictator's note, documented as a scribe by Katya Garcia.
[2022-04-04] MEDS: ACETAMINOPHEN TAB 325 MG TAB PO PRN (12:16)
[2022-04-04] MEDS: SODIUM CHLORIDE 0.9% 1,000 ML IV SCH ×2 (12:21→19:07)
--- NOTE | 2022-04-04 14:05 | P.PN ---
Subjective Progress Note Date: 04/04/22 No new complaints today. CLD. Still has pain, but improved. Gen: awake, alert HEENT: normocephalic, atraumatic, good hearing acuity, moist mucous membranes Resp: good air exchange, breathing comfortably with no accessory muscle use CVS: good distal perfusion x 4, GI: soft, tender palpation of the right upper quadrant, nondistended : no SPT, no CVAT, finnegan catheter not present MSK: no pitting edema, no clubbing Neuro: non-focal, moving all extremities Psych: cooperative, euthymic mood Labs and imaging as above Assessment/plan: Pancreatitis, acute -Admit to inpatient, telemetry -Nothing by mouth, advanced to CLD -IV fluids -Pain control, nausea control, bowel regimen -Advance to clear liquid diet by tomorrow if no emesis, improvement of pain Patient is full code DVT prophylaxis with enoxaparin Objective - Vital Signs Vital signs: Vital Signs Temp 97.5 F L 04/04/22 12:20 Pulse 97 04/04/22 12:20 Resp 15 04/04/22 12:20 BP 112/73 04/04/22 12:20 Pulse Ox 98 04/04/22 12:20 Intake & Output 04/03/22 04/04/22 04/04/22 18:59 06:59 18:59 Intake Total 800 1200 Balance 800 1200 Weight 68.039 kg Intake: Intake, IV Titration 800 1200 Amount Sodium Chloride 0.9% 1, 800 1200 000 ml @ 100 mls/hr IV . Q10H ONE Rx#:[id number] Other: Voiding Method Toilet Toilet # Voids 3 - Labs CBC & Chem 7: 04/04/22 05:48 04/04/22 05:48 Labs: Abnormal Lab Results - Last 24 Hours (Table) 04/04/22 04/04/22 Range/Units 05:48 05:48 RBC 4.01 L (4.10-5.20) X 10*6/uL Hgb 11.6 L (12.0-15.0) g/dL Hct 36.6 L (37.2-46.3) % MCHC 31.7 L (32.0-37.0) g/dL MPV 9.2 L (9.5-12.2) fL Monocytes # 1.11 H (0.20-1.00) X 10*3/uL Carbon Dioxide 19.5 L (20.0-27.5) mmol/L BUN 8.8 L (9.0-27.0) mg/dL Calcium 8.4 L (8.7-10.3) mg/dL
[2022-04-04] MEDS: HYDROmorphone 0.5 MG/0.5 ML SYRINGE IVP PRN (14:58)
[2022-04-04 17:32] LABS: Lipase 1790 U/L (14-63)
[2022-04-04 17:45] LABS: Amylase 938 U/L (23-121)
[2022-04-04] MEDS: MELATONIN 5 MG TABLET PO SCH (20:23)
[2022-04-05] MEDS: SODIUM CHLORIDE 0.9% 1,000 ML IV SCH ×4 (02:57→21:15)
[2022-04-05] MEDS: ENOXAPARIN 40 MG/0.4 ML SYRINGE SQ SCH (08:34)
[2022-04-05] MEDS: HYDROmorphone 1 MG/ML 1 ML SYRINGE IVP PRN (08:35)
[2022-04-05] MEDS ORDERED: MAGNESIUM CITRATE 296 ML BOTTLE PO ONE (12:25)
[2022-04-05] MEDS: ACETAMINOPHEN TAB 325 MG TAB PO PRN (12:42)
--- NOTE | 2022-04-05 12:58 | P.PN ---
Subjective Progress Note Date: 04/05/22 Principal diagnosis: Pancreatitis 21-year-old female who had presented to the emergency department with complaints of epigastric pain radiating to her back. Patient was known to have elevated amylase and lipase consistent with pancreatitis. No previous history. Today she is seen for follow-up states she is feeling much better. She did have some pain this morning and did not want Her clear liquid diet. Denies any nausea or vomiting. She did have a bowel movement. Objective - Vital Signs Vital signs: Vital Signs Temp 98.4 F 04/05/22 04:15 Pulse 96 04/05/22 04:15 Resp 17 04/05/22 04:15 BP 114/72 04/05/22 04:15 Pulse Ox 98 04/05/22 04:15 Intake & Output 04/04/22 04/05/22 04/05/22 18:59 06:59 18:59 Intake Total 1800 Balance 1800 Intake: Intake, IV Titration 1800 Amount Sodium Chloride 0.9% 1, 1800 000 ml @ 150 mls/hr IV . Q6H40M [facility] Rx#:[id number] Other: Voiding Method Toilet Toilet # Voids 2 # Bowel Movements 1 - Exam General appearance: The patient is alert, oriented, appears in no acute distress. HET: Head is normocephalic and atraumatic. Conjunctiva pink. Sclera anicteric. Neck: Supple without lymphadenopathy. Abdomen: Soft, mild epigastric tenderness, nondistended with bowel sounds. No guarding or rigidity. Extremities: Normal skin color and turgor. No pedal edema Skin: No rashes, no jaundice Neurological: No focal deficits. Alert and oriented -3. - Labs CBC & Chem 7: 04/04/22 05:48 04/04/22 05:48 Labs: Abnormal Lab Results - Last 24 Hours (Table) 04/04/22 04/04/22 04/04/22 Range/Units 05:48 05:48 05:48 RBC 4.01 L (4.10-5.20) X 10*6/uL Hgb 11.6 L (12.0-15.0) g/dL Hct 36.6 L (37.2-46.3) % MCHC 31.7 L (32.0-37.0) g/dL MPV 9.2 L (9.5-12.2) fL Monocytes # 1.11 H (0.20-1.00) X 10*3/uL Carbon Dioxide 19.5 L (20.0-27.5) mmol/L BUN 8.8 L (9.0-27.0) mg/dL Calcium 8.4 L (8.7-10.3) mg/dL Amylase 938 H* (23-121) U/L Lipase 1790 H (14-63) U/L Assessment and Plan (1) Pancreatitis Narrative/Plan: 21-year-old female who presented for abdominal pain, mostly in the epigastric region wrapping around to her back. No prior history of pancreatitis, no family history of pancreatitis denies any recent new medications. Ultrasound of the gallbladder without and has been drinking more heavily, she states that she's been binge drinking. On admission amylase 1354 lipase 12,090. LFTs unremarkable. Unknown etiology at this time, may be alcohol related. We'll also run triglycerides, and autoimmune workup. Triglycerides 77 and KIANNA negative. IgG pending. Unknown etiology of pancreatitis at this time continuing workup for autoimmune. At this time will consider alcohol to be possible underlying etiology for pancreatitis. Current Visit: Yes Status: Acute Code(s): K85.90 - ACUTE PANCREATITIS WITHOUT NECROSIS OR INFECTION, UNSP SNOMED Code(s): 65507804 Plan: 1. Continue symptomatic and supportive care 2. Continue with pain management 3. Advanced to full liquid diet 4. Encourage ambulation 5. Repeat lipase in the morning 6. Triglycerides, KIANNA, IgG4 ordered 7. The patient is tolerating diet and pain continues to improve, she may be discharged this evening. Thank you for this consultation, we will continue to follow. Dr. Eder Pineda I agree with the dictator's note, documented as a scribe by Katya Garcia.
--- NOTE | 2022-04-05 13:24 | P.DS ---
Providers Date of admission: 04/03/22 12:37 Expected date of discharge: 04/05/22 Attending physician: Karyna Molina MD Consults: 04/03/22 12:37 Consult Physician Urgent Consulting Provider: Nisha Pineda Consult Reason/Comments: Pancreatitis Do you want consulting provider notified?: Yes Primary care physician: Lester De La Garza [place] [facility] Course: Discharge Diagnosis: Acute pancreatitis unknown etiology Hospital Course: 21-year-old woman with no medical history presented with abdominal pain. Patient says her pain started yesterday, and continuously got worse. She says the pain is epigastric, right upper quadrant area, sharp/stabbing in nature. She has not particularly noticed any association with food intake. She says that she and her boyfriend eat a lot of red meats, fatty foods. She denies significant alcohol history. She denies associated nausea, vomiting, constipation, diarrhea. She denies fevers, chills, chest pain, palpitations, syncope, presyncope, cough, dyspnea, dysuria, dyschezia, numbness/weakness of extremities. In the emergency room, patient is afebrile, 111/71, heart rate 105, 98% on room air. CBC is markable for mild leukocytosis. Chemistries are unremarkable. LFTs are unremarkable. Amylase is elevated at 1354. Lipase is elevated at 12,090. UA significant for 2+ ketones, small blood, positive nitrite, trace leukocyte esterase, rare mucus, however, this UA is contaminated by a squamous epithelial cells. Patient had gallbladder ultrasound showed unremarkable sonog raphic imaging. Patient was started on treatment for acute pancreatitis. She was on aggressive IV fluids. Her diet was gradually improved and plans. At the time of discharge patient is able to tolerate a full liquid diet. She was then deemed stable for discharge. GI was following the patient and ordered autoimmune workup. Patient instructed to follow-up with gas oncology outpatient. At the time of discharge patient is looking forward to going home. Patient seen and examined at bedside.[] Vital signs reviewed and stable. General: [non toxic], [no distress], [appears at stated age] Derm: [warm], [dry] Head: [atraumatic], [normocephalic], [symmetric] Eyes: [EOMI], [no lid lag], [anicteric sclera] Mouth: [no lip lesion], [mucus membranes moist] Cardiovascular: [S1S2 reg], [no murmur], [positive posterior tibial pulse bilateral], Lungs: [CTA bilateral], [no rhonchi, no rales] , [no accessory muscle use] Abdominal: [soft], [ nontender to palpation], [no guarding], [no appreciable organomegaly] Ext: [no gross muscle atrophy], [no edema], [no contractures] Neuro: [ CN II-XI grossly intact], [no focal neuro deficits] Psych: [Alert], [oriented], [appropriate affect] A total of [32] minutes of time were spent preparing this complex discharge summary . Patient Condition at Discharge: Good Plan - Discharge Summary New Discharge Prescriptions: No Action No Known Home Medications Discharge Medication List No Known Home Medications 04/03/22 [History] Follow up Appointment(s)/Referral(s): Lester De La Garza MD [Primary Care Provider] - 1-2 days Nisha Pineda MD [STAFF PHYSICIAN] - 2 Weeks Activity/Diet/Wound Care/Special Instructions: low fiber/low fat diet for one week Discharge Disposition: HOME SELF-CARE
[2022-04-05 20:12] VITALS: RESP 18
[2022-04-05] MEDS: MELATONIN 5 MG TABLET PO SCH (21:15)
[2022-04-05] MEDS: HYDROmorphone 0.5 MG/0.5 ML SYRINGE IVP PRN (22:35)
[2022-04-06 04:30] VITALS: BP 118/73; PULSE 92; TEMP 97.7
[2022-04-06] MEDS: ENOXAPARIN 40 MG/0.4 ML SYRINGE SQ SCH (09:40)
[2022-04-06] MEDS: SODIUM CHLORIDE 0.9% 1,000 ML IV SCH (09:40)
[2022-04-06] MEDS: ACETAMINOPHEN TAB 325 MG TAB PO PRN (10:36)
== END 2022-04-06 11:30 | disposition home or self-care (01) ==
LOC: EC 08:57 → 5NMEDONC 12:37 → INTOOBSV 12:37 → 5NMEDONC 14:34 → UNDODISIN 04-06 11:30
PROVIDERS: ADMIT Internal Medicine; ATTEND Internal Medicine
DX: K85.90 Acute pancreatitis without necrosis or infection, unspecified (principal); F17.290 Nicotine dependence, other tobacco product, uncomplicated; F90.9 Attention-deficit hyperactivity disorder, unspecified type; Z79.899 Other long term (current) drug therapy
CPT/HCPCS: 99285; 96376 ×3; 96361 ×4; 96372 ×2; 96374; 36415; 80053; 80048; 82150 ×2; 83605; 83690 ×3; 83735; 84478; 85025 ×2; 81001; 81025; 82787; 86038; 76705; G0378 ×4; J1650 ×2; J1170 ×6

== ENCOUNTER 2023-10-15 14:45 | Emergency (ER) | payer OTHER ==
[2023-10-15 15:04] LABS: Glucose,Whole Blood 164 mg/dL (70-110)
[2023-10-15 15:35] LABS: Basophils % (A) 1 %; Eosinophils # (A) 0.1 k/uL (0-0.7); Eosinophils % (A) 1 %; HCT 42.6 % (34.0-46.0); HGB 14.4 gm/dL (11.4-16.0); Lymphocytes # (A) 1.7 k/uL (1.0-4.8); Lymphocytes % (A) 23 %; MCH 30.4 pg (25.0-35.0); MCHC 33.9 g/dL (31.0-37.0); MCV 89.6 fL (80.0-100.0); Mean Platelet Volume 6.7; Monocytes # (A) 0.4 k/uL (0-1.0); Monocytes % (A) 6 %; Neutrophils # (A) 4.9 k/uL (1.3-7.7); Neutrophils % (A) 67 %; Platelet Count 242 k/uL (150-450); RBC 4.75 m/uL (3.80-5.40); RDW 13.6 % (11.5-15.5); WBC 7.4 k/uL (3.8-10.6)
[2023-10-15 15:57] LABS: ALT 29 U/L (4-34); AST 31 U/L (14-36); African American GFR (CKD) >90 (>60 ml/min/1.73 sqM); Albumin 4.8 g/dL (3.5-5.0); Alkaline Phosphatase 48 U/L (38-126); Anion Gap 11 mmol/L; Blood Urea Nitrogen 10 mg/dL (7-17); Calcium 9.4 mg/dL (8.4-10.2); Carbon Dioxide 26 mmol/L (22-30); Chloride 101 mmol/L (98-107); Glucose 80 mg/dL (74-99); Non-African American GFR(CKD) >90 (>60 ml/min/1.73 sqM); Potassium 3.8 mmol/L (3.5-5.1); Sodium 138 mmol/L (137-145); Total Bilirubin 0.6 mg/dL (0.2-1.3); Total Protein 7.7 g/dL (6.3-8.2)
--- NOTE | 2023-10-15 16:57 | ED ---
Dizziness HPI - General Chief Complaint: Dizziness Stated Complaint: dizziness Time Seen by Provider: 10/15/23 16:27 Source: patient Mode of arrival: ambulatory Limitations: no limitations - History of Present Illness Initial Comments: Otherwise healthy 23-year-old female presenting to the ED with the chief complaint of dizziness. Patient states approximately 4 days ago after working out she started to experience dizziness. Describes the dizziness as feeling as if she is going to pass out and also describes it as feeling that she is "walking on a boat". She states that she first started to experience this initially after working out and thought it may have been related to that however notes that she has had these symptoms since then. Symptoms are intermittent in nature. Patient states that it can last for hours and seems to come on at [facility] however notes that changes from sitting to standing often provoked symptoms more often. Denies chest pain or shortness of breath. No abdominal pain. No change in bowel or bladder habits. No other complaints. - Related Data Home Medications Medication Instructions Recorded Confirmed No Known Home Medications 04/03/22 04/03/22 Allergies Allergy/AdvReac Type Severity Reaction Status Date / Time No Known Allergies Allergy Verified 10/15/23 14:59 Review of Systems ROS Statement: Those systems with pertinent positive or pertinent negative responses have been documented in the HPI. ROS Other: All systems not noted in ROS Statement are negative. Past Medical History Past Medical History: No Reported History History of Any Multi-Drug Resistant Organisms: None Reported Past Surgical History: No Surgical Hx Reported Additional Past Surgical History / Comment(s): oral surgery Past Psychological History: No Psychological Hx Reported, ADD/ADHD Smoking Status: Current some day smoker, Vaper Past Alcohol Use History: Occasional Past Drug Use History: Marijuana General Exam Limitations: no limitations General appearance: alert, in no apparent distress Eye exam: Present: normal appearance Neck exam: Present: normal inspection Respiratory exam: Present: normal lung sounds bilaterally Cardiovascular Exam: Present: regular rate, normal rhythm GI/Abdominal exam: Present: soft Neurological exam: Present: alert, oriented X3 Skin exam: Present: warm, dry Course Vital Signs 10/15/23 10/15/23 10/15/23 14:57 17:10 17:11 Temperature 98 F Pulse Rate 120 H Pulse Rate [ 114 H Right Standing] Pulse Rate [ 74 Right Supine Pulse Oximetery ] Respiratory 18 Rate Blood Pressure 135/87 Blood Pressure 123/83 [Left Arm Standing] Blood Pressure 122/78 [Left Arm Supine] O2 Sat by Pulse 99 Oximetry - Reevaluation(s) Reevaluation #1: I was informed that there may have been a laboratory error when drawing initial labs including CBC and CMP. Therefore, these were redrawn. 10/15/23 18:31 Medical Decision Making - Medical Decision Making Was pt. sent in by a medical professional or institution (, PA, POWER [employer] CLIPPER, urgent care, hospital, or [facility]...) When possible be specific @ -No Did you speak to anyone other than the patient for history (EMS, parent, family, police, friend...)? What history was obtained from this source @ -No Did you review nursing and triage notes (agree or disagree)? Why? @ -I reviewed and agree with nursing and triage notes Were old charts reviewed (outside hosp., previous admission, EMS record, old EKG, old radiological studies, urgent care reports/EKG's, [facility] records)? Report findings @ -No old charts were reviewed Differential Diagnosis (chest pain, altered mental status, abdominal pain women, abdominal pain men, vaginal bleeding, weakness, fever, dyspnea, syncope, headache, dizziness, GI bleed, back pain, seizure, CVA, palpatations, mental health, musculoskeletal)? @ -Differential Dizziness: Benign paroxysmal positional Vertigo, Menieres disease, otitis media, acoustic neuroma, vertebrobasilar insufficiency, cerebellar stroke, encephalitis, hypov olemic, arrhythmia, coronary artery syndrome, anemia, this is not meant to be an all-inclusive list EKG interpreted by me (3pts min.). @ -As above X-rays interpreted by me (1pt min.). @ -None done CT interpreted by me (1pt min.). @ -None done U/S interpreted by me (1pt. min.). @ -None done What testing was considered but not performed or refused? (CT, X-rays, U/S, labs)? Why? @ -None What meds were considered but not given or refused? Why? @ -None Did you discuss the management of the patient with other professionals (professionals i.e. , JUVENAL, POWER [employer]IR CLIPPER, lab, RT, psych nurse, addiction social worker, bath mixer, teacher, structural engineering drafting officer, egg caser)? Give summary @ -No Was smoking cessation discussed for >3mins.? @ -No Was critical care preformed (if so, how long)? @ -No Were there social determinants of health that impacted care today? How? (Shayy elessness, low income, unemployed, alcoholism, drug addiction, transportation, low edu. Level, literacy, decrease access to med. care, residential, rehab)? @ -No Was there de-escalation of care discussed even if they declined (Discuss DNR or withdrawal of care, Hospice)? DNR status @ -No What co-morbidities impacted this encounter? (DM, HTN, Smoking, COPD, CAD, Cancer, CVA, ARF, Chemo, Hep., AIDS, mental health diagnosis, sleep apnea, morbid obesity)? @ -None Was patient admitted / discharged? Hospital course, mention meds given and route, prescriptions, significant lab abnormalities, going to OR and other pertinent info. @ -Discharge 23-year-old female presenting to the ED with a chief complaint of lightheadedness especially with sitting/standing. Auditory studies reviewed. Labs including CBC, coags, chemistry panel, troponin, d-dimer, UA, urine test unremarkable. EKG with a normal sinus rhythm without acute ST-T wave changes. Patient did have a elevation in pulse from lying supine to standing at 74 bpm 214 bpm respectively. At this time vital signs stable afebrile. Patient discharged home in stable quality with referral to see cardiology. Discussed return precautions with patient's mother verbalizes agree. Undiagnosed new problem with uncertain prognosis? @ -No Drug Therapy requiring intensive monitoring for toxicity (Heparin, Nitro, Insulin, Cardizem)? @ -No Were any procedures done? @ -No Diagnosis/symptom? @ -Lightheadedness Acute, or Chronic, or Acute on Chronic? @ -Acute Uncomplicated (without systemic symptoms) or Complicated (systemic symptoms)? @ -Uncomplicated Side effects of treatment? @ -No Exacerbation, Progression, or Severe Exacerbation? @ -No Poses a threat to life or bodily function? How? (Chest pain, USA, VT, pneumonia, PE, COPD, DKA, ARF, appy, cholecystitis, CVA, Diverticulitis, Homicidal, Suicidal, threat to staff... and all critical care pts) @ -No - Lab Data Result diagrams: 10/15/23 18:36 10/15/23 18:36 Lab Results 10/15/23 10/15/23 10/15/23 Range/Units 15:01 15:07 15:07 WBC 7.4 (3.8-10.6) k/uL RBC 4.75 (3.80-5.40) m/uL Hgb 14.4 (11.4-16.0) gm/dL Hct 42.6 (34.0-46.0) % MCV 89.6 (80.0-100.0) fL MCH 30.4 (25.0-35.0) pg MCHC 33.9 (31.0-37.0) g/dL RDW 13.6 (11.5-15.5) % Plt Count 242 (150-450) k/uL MPV 6.7 Neutrophils % 67 % Lymphocytes % 23 % Monocytes % 6 % Eosinophils % 1 % Basophils % 1 % Neutrophils # 4.9 (1.3-7.7) k/uL Lymphocytes # 1.7 (1.0-4.8) k/uL Monocytes # 0.4 (0-1.0) k/uL Eosinophils # 0.1 (0-0.7) k/uL Basophils # 0.0 (0-0.2) k/uL PT (10.0-12.5) sec INR (<1.2) APTT (22.0-30.0) sec D-Dimer (<0.60) mg/L FEU Sodium 138 (137-145) mmol/L Potassium 3.8 (3.5-5.1) mmol/L Chloride 101 (98-107) mmol/L Carbon Dioxide 26 (22-30) mmol/L Anion Gap 11 mmol/L BUN 10 (7-17) mg/dL Creatinine 0.61 (0.52-1.04) mg/dL Est GFR (CKD-EPI)AfAm >90 (>60 ml/min/1.73 sqM) Est GFR (CKD-EPI)NonAf >90 (>60 ml/min/1.73 sqM) Glucose 80 (74-99) mg/dL POC Glucose (mg/dL) 164 H (70-110) mg/dL POC Glu Junior Linux Systems Administrator ID Scheff, Ese Calcium 9.4 (8.4-10.2) mg/dL Magnesium (1.6-2.3) mg/dL Total Bilirubin 0.6 (0.2-1.3) mg/dL AST 31 (14-36) U/L ALT 29 (4-34) U/L Alkaline Phosphatase 48 (38-126) U/L Troponin I (0.000-0.034) ng/mL Total Protein 7.7 (6.3-8.2) g/dL Albumin 4.8 (3.5-5.0) g/dL Urine Color Urine Appearance (Clear) Urine pH (5.0-8.0) Ur Specific [place] (1.001-1.035) Urine Protein (Negative) Urine Glucose (UA) (Negative) Urine Ketones (Negative) Urine Blood (Negative) Urine Nitrite (Negative) Urine Bilirubin (Negative) Urine Urobilinogen (<2.0) mg/dL Ur Leukocyte Esterase (Negative) Urine RBC (0-5) /hpf Urine WBC (0-5) /hpf Ur Squamous Epith Cells (0-4) /hpf Urine Bacteria (None) /hpf Urine HCG, Qual (Not Detectd) 10/15/23 10/15/23 10/15/23 Range/Units 17:43 17:43 17:43 WBC (3.8-10.6) k/uL RBC (3.80-5.40) m/uL Hgb (11.4-16.0) gm/dL Hct (34.0-46.0) % MCV (80.0-100.0) fL MCH (25.0-35.0) pg MCHC (31.0-37.0) g/dL RDW (11.5-15.5) % Plt Count (150-450) k/uL MPV Neutrophils % % Lymphocytes % % Monocytes % % Eosinophils % % Basophils % % Neutrophils # (1.3-7.7) k/uL Lymphocytes # (1.0-4.8) k/uL Monocytes # (0-1.0) k/uL Eosinophils # (0-0.7) k/uL Basophils # (0-0.2) k/uL PT 11.3 (10.0-12.5) sec INR 1.0 (<1.2) APTT 26.6 (22.0-30.0) sec D-Dimer <0.17 (<0.60) mg/L FEU Sodium (137-145) mmol/L Potassium (3.5-5.1) mmol/L Chloride (98-107) mmol/L Carbon Dioxide (22-30) mmol/L Anion Gap mmol/L BUN (7-17) mg/dL Creatinine (0.52-1.04) mg/dL Est GFR (CKD-EPI)AfAm (>60 ml/min/1.73 sqM) Est GFR (CKD-EPI)NonAf (>60 ml/min/1.73 sqM) Glucose (74-99) mg/dL POC Glucose (mg/dL) (70-110) mg/dL POC Glu Junior Linux Systems Administrator ID Calcium (8.4-10.2) mg/dL Magnesium 2.0 (1.6-2.3) mg/dL Total Bilirubin (0.2-1.3) mg/dL AST (14-36) U/L ALT (4-34) U/L Alkaline Phosphatase (38-126) U/L Troponin I <0.012 (0.000-0.034) ng/mL Total Protein (6.3-8.2) g/dL Albumin (3.5-5.0) g/dL Urine Color Urine Appearance (Clear) Urine pH (5.0-8.0) Ur Specific [place] (1.001-1.035) Urine Protein (Negative) Urine Glucose (UA) (Negative) Urine Ketones (Negative) Urine Blood (Negative) Urine Nitrite (Negative) Urine Bilirubin (Negative) Urine Urobilinogen (<2.0) mg/dL Ur Leukocyte Esterase (Negative) Urine RBC (0-5) /hpf Urine WBC (0-5) /hpf Ur Squamous Epith Cells (0-4) /hpf Urine Bacteria (None) /hpf Urine HCG, Qual (Not Detectd) 10/15/23 10/15/23 10/15/23 Range/Units 18:36 18:36 18:57 WBC 7.9 (3.8-10.6) k/uL RBC 4.24 (3.80-5.40) m/uL Hgb 12.7 (11.4-16.0) gm/dL Hct 37.6 (34.0-46.0) % MCV 88.7 (80.0-100.0) fL MCH 30.0 (25.0-35.0) pg MCHC 33.8 (31.0-37.0) g/dL RDW 13.8 (11.5-15.5) % Plt Count 220 (150-450) k/uL MPV 6.9 Neutrophils % 69 % Lymphocytes % 22 % Monocytes % 6 % Eosinophils % 2 % Basophils % 0 % Neutrophils # 5.5 (1.3-7.7) k/uL Lymphocytes # 1.7 (1.0-4.8) k/uL Monocytes # 0.5 (0-1.0) k/uL Eosinophils # 0.1 (0-0.7) k/uL Basophils # 0.0 (0-0.2) k/uL PT (10.0-12.5) sec INR (<1.2) APTT (22.0-30.0) sec D-Dimer (<0.60) mg/L FEU Sodium 136 L (137-145) mmol/L Potassium 3.5 (3.5-5.1) mmol/L Chloride 105 (98-107) mmol/L Carbon Dioxide 24 (22-30) mmol/L Anion Gap 7 mmol/L BUN 10 (7-17) mg/dL Creatinine 0.51 L (0.52-1.04) mg/dL Est GFR (CKD-EPI)AfAm >90 (>60 ml/min/1.73 sqM) Est GFR (CKD-EPI)NonAf >90 (>60 ml/min/1.73 sqM) Glucose 80 (74-99) mg/dL POC Glucose (mg/dL) (70-110) mg/dL POC Glu Junior Linux Systems Administrator ID Calcium 8.4 (8.4-10.2) mg/dL Magnesium (1.6-2.3) mg/dL Total Bilirubin 0.5 (0.2-1.3) mg/dL AST 28 (14-36) U/L ALT 24 (4-34) U/L Alkaline Phosphatase 47 (38-126) U/L Troponin I (0.000-0.034) ng/mL Total Protein 6.5 (6.3-8.2) g/dL Albumin 4.0 (3.5-5.0) g/dL Urine Color Colorless Urine Appearance Cloudy H (Clear) Urine pH 7.0 (5.0-8.0) Ur Specific [place] 1.006 (1.001-1.035) Urine Protein Negative (Negative) Urine Glucose (UA) Negative (Negative) Urine Ketones Negative (Negative) Urine Blood Negative (Negative) Urine Nitrite Negative (Negative) Urine Bilirubin Negative (Negative) Urine Urobilinogen <2.0 (<2.0) mg/dL Ur Leukocyte Esterase Negative (Negative) Urine RBC 2 (0-5) /hpf Urine WBC 15 H (0-5) /hpf Ur Squamous Epith Cells 14 H (0-4) /hpf Urine Bacteria Many H (None) /hpf Urine HCG, Qual (Not Detectd) 10/15/23 Range/Units 18:57 WBC (3.8-10.6) k/uL RBC (3.80-5.40) m/uL Hgb (11.4-16.0) gm/dL Hct (34.0-46.0) % MCV (80.0-100.0) fL MCH (25.0-35.0) pg MCHC (31.0-37.0) g/dL RDW (11.5-15.5) % Plt Count (150-450) k/uL MPV Neutrophils % % Lymphocytes % % Monocytes % % Eosinophils % % Basophils % % Neutrophils # (1.3-7.7) k/uL Lymphocytes # (1.0-4.8) k/uL Monocytes # (0-1.0) k/uL Eosinophils # (0-0.7) k/uL Basophils # (0-0.2) k/uL PT (10.0-12.5) sec INR (<1.2) APTT (22.0-30.0) sec D-Dimer (<0.60) mg/L FEU Sodium (137-145) mmol/L Potassium (3.5-5.1) mmol/L Chloride (98-107) mmol/L Carbon Dioxide (22-30) mmol/L Anion Gap mmol/L BUN (7-17) mg/dL Creatinine (0.52-1.04) mg/dL Est GFR (CKD-EPI)AfAm (>60 ml/min/1.73 sqM) Est GFR (CKD-EPI)NonAf (>60 ml/min/1.73 sqM) Glucose (74-99) mg/dL POC Glucose (mg/dL) (70-110) mg/dL POC Glu Junior Linux Systems Administrator ID Calcium (8.4-10.2) mg/dL Magnesium (1.6-2.3) mg/dL Total Bilirubin (0.2-1.3) mg/dL AST (14-36) U/L ALT (4-34) U/L Alkaline Phosphatase (38-126) U/L Troponin I (0.000-0.034) ng/mL Total Protein (6.3-8.2) g/dL Albumin (3.5-5.0) g/dL Urine Color Urine Appearance (Clear) Urine pH (5.0-8.0) Ur Specific [place] (1.001-1.035) Urine Protein (Negative) Urine Glucose (UA) (Negative) Urine Ketones (Negative) Urine Blood (Negative) Urine Nitrite (Negative) Urine Bilirubin (Negative) Urine Urobilinogen (<2.0) mg/dL Ur Leukocyte Esterase (Negative) Urine RBC (0-5) /hpf Urine WBC (0-5) /hpf Ur Squamous Epith Cells (0-4) /hpf Urine Bacteria (None) /hpf Urine HCG, Qual Not Detected (Not Detectd) - EKG Data EKG Comments: EKG shows a sinus tachycardia at 100 beats per minutes without acute ST or T- wave changes. MA 131, QRS 81, QT/QTc 357/414. Disposition Clinical Impression: Lightheaded Disposition: HOME SELF-CARE Condition: Good Additional Instructions: Please return to the Emergency Department if symptoms worsen or any other concerns. Please follow up with your primary care provider and/or cardiology. Is patient prescribed a controlled substance at d/c from ED?: No Referrals: Gino Carrillo DO [Primary Care Provider] - 1-2 days Canelo Kelley MD [STAFF PHYSICIAN] - 1-2 days Time of Disposition: 19:50
[2023-10-15] MEDS ORDERED: SODIUM CHLORIDE 0.9% 1,000 ML IV STA (17:26)
[2023-10-15] MEDS ORDERED: LORazepam 2 MG/ML INJ IV STA (17:26)
[2023-10-15 18:13] LABS: Partial Thromboplastin Time 26.6 sec (22.0-30.0); Prothrombin Time 11.3 sec (10.0-12.5)
[2023-10-15 18:41] LABS: Basophils % (A) 0 %; Eosinophils # (A) 0.1 k/uL (0-0.7); Eosinophils % (A) 2 %; HCT 37.6 % (34.0-46.0); HGB 12.7 gm/dL (11.4-16.0); Lymphocytes # (A) 1.7 k/uL (1.0-4.8); Lymphocytes % (A) 22 %; MCHC 33.8 g/dL (31.0-37.0); MCV 88.7 fL (80.0-100.0); Mean Platelet Volume 6.9; Monocytes # (A) 0.5 k/uL (0-1.0); Monocytes % (A) 6 %; Neutrophils # (A) 5.5 k/uL (1.3-7.7); Neutrophils % (A) 69 %; Platelet Count 220 k/uL (150-450); RBC 4.24 m/uL (3.80-5.40); RDW 13.8 % (11.5-15.5); WBC 7.9 k/uL (3.8-10.6)
[2023-10-15 19:10] LABS: ALT 24 U/L (4-34); AST 28 U/L (14-36); African American GFR (CKD) >90 (>60 ml/min/1.73 sqM); Alkaline Phosphatase 47 U/L (38-126); Anion Gap 7 mmol/L; Blood Urea Nitrogen 10 mg/dL (7-17); Calcium 8.4 mg/dL (8.4-10.2); Carbon Dioxide 24 mmol/L (22-30); Chloride 105 mmol/L (98-107); Glucose 80 mg/dL (74-99); Non-African American GFR(CKD) >90 (>60 ml/min/1.73 sqM); Potassium 3.5 mmol/L (3.5-5.1); Sodium 136 mmol/L (137-145); Total Bilirubin 0.5 mg/dL (0.2-1.3); Total Protein 6.5 g/dL (6.3-8.2)
[2023-10-15 19:28] LABS: Appearance,Urine Cloudy (Clear); Bacteria,Urine Many /hpf; Bilirubin,Urine Negative (Negative); Blood,Urine Negative (Negative); Color,Urine Colorless; Glucose,Urine (UA) Negative (Negative); Ketones,Urine Negative (Negative); Leukocyte Esterase,Urine Negative (Negative); Nitrite,Urine Negative (Negative); Protein,Urine Negative (Negative); RBC,Urine 2 /hpf (0-5); Specific Gravity,Urine 1.006 (1.001-1.035); Squamous Epithelial Cell,Urine 14 /hpf (0-4); Urobilinogen,Urine <2.0 mg/dL (<2.0); WBC,Urine 15 /hpf (0-5)
[2023-10-15 20:35] VITALS: BP 110/74; PULSE 70; RESP 16; TEMP 98.8
== END 2023-10-15 20:25 | disposition home or self-care (01) ==
LOC: EC 14:45
DX: R42 Dizziness and giddiness (principal); F17.290 Nicotine dependence, other tobacco product, uncomplicated; F12.90 Cannabis use, unspecified, uncomplicated; I45.10 Unspecified right bundle-branch block
CPT/HCPCS: 36415; 93005; 85379; 80053; 83735; 84484; 85025; 85610; 85730; 81001; 81025; 99284; 96374; 96361; J2060